=== PATIENT | female | born 2000 | race Caucasian/White ===

== ENCOUNTER → 2020-02-18 15:41 | Outpatient (BNVA) | payer OTHER, SELFPAY | PROVIDERS: Family Provider Family Medicine; PCP Family Medicine; Visit Provider Nurse Practitioner Family | DX: J06.9 Acute upper respiratory infection, unspecified (principal); Z20.828 Contact with and (suspected) exposure to other viral communicable diseases | CPT/HCPCS: 87635 ==

== ENCOUNTER 2020-02-27 17:26 | Emergency (ER) | payer OTHER, SELFPAY ==
--- NOTE | 2020-02-27 17:29 | XR_ITS ---
WS: [id number] Portable AP upright chest, 02/27/2020 Clinical Data: cp Comparison: None. Findings: No nodules, masses or effusions are seen. The heart is normal. The pulmonary vascularity is not increased. No pneumonia or pneumothorax is seen. XR/XR chest 1V portable [id number] Impression: Negative chest.
--- NOTE | 2020-02-27 17:29 | ECG_ITS ---
[facility] Test Date: 2020-02-27 Pat Name: Damari Hargrove Department: Room: Gender: Female Satellite Manager: : 2000 Requested By: Mirtha Lynn Order Number: [id number] Mahad MD: Basilia Mcgraw M.D. Measurements Intervals [place] Rate: 99 P: 39 WA: 153 QRS: 56 QRSD: 94 T: 42 QT: 325 QTc: 418 Interpretive Statements SINUS RHYTHM Compared to ECG 08/03/2015 23:05:23 Sinus tachycardia no longer present Left-axis deviation no longer present T-wave abnormality no longer present Electronically Signed On 02-28-2020 17:12:41 CDT by Basilia Mcgraw M.D. [id number] f
[2020-02-27 17:33] VITALS: BP 125/91; PULSE 128; RESP 30; TEMP 36.5; O2SAT 100; BMI 34.3
--- NOTE | 2020-02-27 17:45 | ED_ITS ---
HPI - Chest Pain General: Chief Complaint: Chest Pain Stated Complaint: covid +-chest pain Time Seen by Provider: 02/27/20 17:35 Source: patient Mode of arrival: ambulatory Limitations: no limitations History of Present Illness: HPI narrative: 20-year-old female who states she has had a cough along with chest pain and low-grade fever over the last week. Patient did test for positive for COVID last Tuesday. She states she has been afebrile over the last 2 days denies any worsening or improving factors. Denies vomiting or diarrhea. Associated symptoms: Deny abdominal pain, fever(s), nausea or vomiting Review of Systems Const: Denies: fever(s), chills, body aches or change in appetite Eyes: Denies: blurry vision or eye discomfort ENMT: Denies: throat pain or dental pain Card: Reports: chest pain Resp: Reports: non-productive cough GI: Denies: abdominal pain, nausea, vomiting or diarrhea : Denies: dysuria Musc: Denies: neck pain or back pain Skin/Breast: Denies: rash Neuro: Denies: headache(s) Psych: Denies: depression Nate/Lymph: Denies: easy bruising All/Imm: Denies: urticaria PFSH ED PFSH: Social History Smoking and tobacco status: current every day smoker Alcohol intake: current Alcohol intake frequency: holidays/special occasions only Substance/Drug Use: current Substance/Drug use frequency: daily Substance/Drug use type: Marijuana Female Reproductive History: Date of last menstrual period: 02/27/20 Physical Exam Const: COMMON NORMALS: no acute distress, patient oriented x3 and healthy appearing HENMT: COMMON NORMALS: normocephalic and atraumatic HEAD & SCALP: normocephalic and atraumatic Eye: COMMON NORMALS: Equal, round and reactive pupils present and EOMs intact bilaterally PUPIL: Yes Equal, round and reactive pupils present Neck/C-Spine: COMMON NORMALS: full ROM and supple Chest: COMMONS NORMALS: normal inspection of the chest and normal palpation of entire chest wall Resp: COMMON NORMALS: normal respiratory effort, No retractions, No use of accessory muscles and clear to auscultation bilaterally AUSCULTATION: clear to auscultation bilaterally Cardio: COMMON NORMALS: regular rhythm and No murmurs present (Cardio) RATE: tachycardic RHYTHM: regular rhythm GI: COMMON NORMALS: Normal to inspection, nondistended, normoactive bowel sounds present, Soft to palpation, non-tender and no masses PALPATION: Yes Soft to palpation Extremity: COMMON NORMALS: normal to inspection and full ROM Neuro: COMMON NORMALS: patient oriented x3, moves all extremities and no focal motor deficits Psych: COMMON NORMALS: mental status grossly normal, Normal thought process present and cooperative THOUGHT PROCESS: Normal thought process present Skin: COMMON NORMALS: no rashes or lesions noted and no wounds GENERAL SKIN EXAM: no rashes or lesions noted Course Vital Signs: Vital signs: Vital Signs Temperature 97.7 F 02/27/20 17:33 Pulse Rate 128 H 02/27/20 17:33 Respiratory Rate 30 H 02/27/20 17:33 Blood Pressure 125/91 02/27/20 17:33 Pulse Oximetry 100 02/27/20 17:33 MDM - Chest Pain MDM Narrative: Medical decision making narrative: Patient presents with atypical chest pain likely from coughing from coronavirus. Patient CT showed no signs of pulmonary embolism. Patient's blood work here is normal. Patient is stable for discharge and is to follow-up with PCP and return if worsening. Lab Data: Labs: Lab Results 02/27/20 02/27/20 02/27/20 Range/Units 18:18 18:18 18:18 WBC 13.3 H (4.0-10.0) 10^3/ uL RBC 4.57 (4.1-5.3) 10^6/u L Hgb 13.8 (11.5-15.3) g/dL Hct 42.7 (37.0-47.0) % MCV 93.4 (81-99) fL MCH 30.2 (28.0-34.0) pg MCHC 32.3 (30.0-36.0) g/dL RDW 12.4 (12.1-15.1) % Plt Count 344 (130-400) 10^3/c mm MPV 10.5 H (7.4-10.4) fL Neut % (Auto) 54.5 % Lymph % (Auto) 40.7 % [place] % (Auto) 4.0 % Eos % (Auto) 0.3 % Baso % (Auto) 0.2 % Neut # (Auto) 7.23 (1.8-7.7) 10^3/u L Lymph # (Auto) 5.4 H (0.8-4.8) 10^3/u L [place] # (Auto) 0.5 (0.2-0.9) 10^3/u L Eos # (Auto) 0.0 (0.0-0.8) 10^3/u L Baso # (Auto) 0.0 (0.0-0.1) 10^3/u L Nucleated RBC % (a uto) 0 % Nucleated RBCs # 0.0 /100WBC D-Dimer (0-0.59) ug/mIFE U Sodium 138 (136-145) mmol/L Potassium 3.8 (3.5-5.1) mmol/L Chloride 102 (98-107) mmol/L Carbon Dioxide 25 (22-29) mmol/L Anion Gap 14.8 (5-19) BUN 9 (6-20) mg/dL Creatinine 0.7 (0.5-0.9) mg/dL GFR Calculation 104.6 (90-130) mL/min Glucose 124 H (65-115) mg/dL Calculated Osmolal ity 286 (285-295) mOsm/k g Calcium 10.4 (8.5-10.5) mg/dL Total Bilirubin 0.2 (0.15-1.2) mg/dL AST 24 (0-32) U/L ALT 24 (0-33) U/L Alkaline Phosphata se 131 H (35-105) IU/L Troponin T 120 Min [place] Troponin T Total Protein 7.7 (6.6-8.7) g/dL Albumin 4.4 (3.5-5.2) g/dL Globulin 3.3 (1.3-4.6) g/dL Lipase 25 (13-60) U/L HCG, Qual Negative (Negative) 02/27/20 02/27/20 Range/Units 18:18 18:18 WBC (4.0-10.0) 10^3/ uL RBC (4.1-5.3) 10^6/u L Hgb (11.5-15.3) g/dL Hct (37.0-47.0) % MCV (81-99) fL MCH (28.0-34.0) pg MCHC (30.0-36.0) g/dL RDW (12.1-15.1) % Plt Count (130-400) 10^3/c mm MPV (7.4-10.4) fL Neut % (Auto) % Lymph % (Auto) % [place] % (Auto) % Eos % (Auto) % Baso % (Auto) % Neut # (Auto) (1.8-7.7) 10^3/u L Lymph # (Auto) (0.8-4.8) 10^3/u L [place] # (Auto) (0.2-0.9) 10^3/u L Eos # (Auto) (0.0-0.8) 10^3/u L Baso # (Auto) (0.0-0.1) 10^3/u L Nucleated RBC % (a uto) % Nucleated RBCs # /100WBC D-Dimer 1.34 H (0-0.59) ug/mIFE U Sodium (136-145) mmol/L Potassium (3.5-5.1) mmol/L Chloride (98-107) mmol/L Carbon Dioxide (22-29) mmol/L Anion Gap (5-19) BUN (6-20) mg/dL Creatinine (0.5-0.9) mg/dL GFR Calculation (90-130) mL/min Glucose (65-115) mg/dL Calculated Osmolal ity (285-295) mOsm/k g Calcium (8.5-10.5) mg/dL Total Bilirubin (0.15-1.2) mg/dL AST (0-32) U/L ALT (0-33) U/L Alkaline Phosphata se (35-105) IU/L Troponin T 120 Min [place] Cancelled [place] Troponin T Cancelled Total Protein (6.6-8.7) g/dL Albumin (3.5-5.2) g/dL Globulin (1.3-4.6) g/dL Lipase (13-60) U/L HCG, Qual (Negative) Imaging Data^: CT Chest: Radiologist's impression: [address] [address] [address] Scan Report Signed Patient: Damari Hargrove Unit #: [id number] : 2000 Age/Sex: 20 / F ADM Date: 02/27/20 Loc: ER Room/Bed: Attending Dr: Ordering Provider/Ordering MD: Mirtha Lynn MD Date of Service: 02/27/20 Procedure(s): CT angio chest PE protcl [id number] Accession Number(s): [id number] Report Number: [id number] PROCEDURE INFORMATION: Exam: CT Angiography Chest With Contrast Exam date and time: 02/27/2020 6:48 PM Age: 20 years old Clinical indication: Cough and shortness of breath; Patient HX: Covid +; Additional info: Cp TECHNIQUE: Imaging protocol: Computed tomographic angiography of the chest with intravenous contrast. 3D rendering (Not supervised by radiologist): MIP and/or 3D reconstructed images were created by the technologist. Radiation optimization: All CT scans at this facility use at least one of these dose optimization techniques: automated exposure control; mA and/or kV adjustment per patient size (includes targeted exams where dose is matched to clinical indication); or iterative reconstruction. Contrast material: OMNI 350; Contrast volume: 62 ml; Contrast route: INTRAVENOUS (IV); COMPARISON: CR XR chest 1V portable [id number] 02/27/2020 5:52 PM RADIATION DOSE METRICS: Total DLP (mGy-cm): 565.81 FINDINGS: Pulmonary arteries: Suboptimal contrast opacification of the pulmonary arteries due to bolus timing. No filling defects identified in the central or lobar pulmonary artery branches. The segmental and smaller branches are suboptimally opacified to rule out embolus. Aorta: Unremarkable. No aortic aneurysm. No aortic dissection. Lungs: Calcified granulomas in the right lung. The lungs are otherwise clear. No ground-glass opacities identified. Pleural space: Unremarkable. No pneumothorax. No pleural effusion. Heart: Unremarkable. No cardiomegaly. No pericardial effusion. Lymph nodes: Calcified mediastinal and right hilar lymph nodes. Bones/joints: Unremarkable. No acute fracture. Soft tissues: Unremarkable. CT/CT angio chest PE protcl [id number] IMPRESSION: 1. Suboptimal pulmonary artery bolus timing. No filling defects identified within the central or lobar branches. The more distal branches are suboptimally visualized. 2. No evidence for pneumonia. EKG Data^: EKG 1: Attestation: I personally reviewed and interpreted this EKG as follows: EKG interpretation date: 02/27/20 EKG interpretation time: 17:47 Interpretation: nsr hr [address] or t wave abnormalities qrs 94 qtc 381 Discharge Plan Discharge Patient Disposition: Home Clinical Impression: Atypical chest pain, COVID-19 Condition: Stable Prescriptions: New Naprosyn 500 mg tablet 500 mg PO BID PRN (Reason: pain) Qty: 20 RF: 0 No Action acetaminophen 500 mg Tablet 1,000 mg PO PRN RF: 0 Discharge Orders: Discharge Order (Routine); Ordered 02/27/20 Ordered By: Mirtha Lynn Referrals: Brayden Lemos, DO [Primary Care Provider] - 1-3 days Discharge Diet: Advance as tolerated Discharge Activity: Resume usual activity Patient Instructions: Chest Pain (ED) Stand Alone Forms: Work/School Release Coding Level of Care Code ED Equipment Maintenance Superintendent for Chg Fwd Exam Comprehensive
[2020-02-27 18:25] LABS: Basophils % 0.2 %; Eosinophils % 0.3 %; Hematocrit 42.7 % (37.0-47.0); Hemoglobin 13.8 g/dL (11.5-15.3); Lymphocytes # 5.4 10^3/uL (0.8-4.8); Lymphocytes % 40.7 %; Mean Corpuscular HGB Conc 32.3 g/dL (30.0-36.0); Mean Corpuscular Hemoglobin 30.2 pg (28.0-34.0); Mean Corpuscular Volume 93.4 fL (81-99); Mean Platelet Volume 10.5 fL (7.4-10.4); Monocytes # 0.5 10^3/uL (0.2-0.9); Neutrophils # 7.23 10^3/uL (1.8-7.7); Neutrophils % 54.5 %; Nucleated Red Blood Cells % 0 %; Platelet Count 344 10^3/cmm (130-400); Red Blood Count 4.57 10^6/uL (4.1-5.3); Red Cell Distribution Width 12.4 % (12.1-15.1); White Blood Count 13.3 10^3/uL (4.0-10.0)
[2020-02-27] MEDS: dexamethasone 10 mg/mL INJ IVP (18:28)
[2020-02-27] MEDS: ketorolac 30 mg/mL INJ IVP (18:28)
[2020-02-27 18:39] LABS: HCG Qualitative Urine. Negative (Negative)
[2020-02-27 18:40] LABS: D Dimer 1.34 ug/mIFEU (0-0.59)
--- NOTE | 2020-02-27 18:43 | CTR_ITS ---
PROCEDURE INFORMATION: Exam: CT Angiography Chest With Contrast Exam date and time: 02/27/2020 6:48 PM Age: 20 years old Clinical indication: Cough and shortness of breath; Patient HX: Covid +; Additional info: Cp TECHNIQUE: Imaging protocol: Computed tomographic angiography of the chest with intravenous contrast. 3D rendering (Not supervised by radiologist): MIP and/or 3D reconstructed images were created by the technologist. Radiation optimization: All CT scans at this facility use at least one of these dose optimization techniques: automated exposure control; mA and/or kV adjustment per patient size (includes targeted exams where dose is matched to clinical indication); or iterative reconstruction. Contrast material: OMNI 350; Contrast volume: 62 ml; Contrast route: INTRAVENOUS (IV); COMPARISON: CR XR chest 1V portable [id number] 02/27/2020 5:52 PM RADIATION DOSE METRICS: Total DLP (mGy-cm): 565.81 FINDINGS: Pulmonary arteries: Suboptimal contrast opacification of the pulmonary arteries due to bolus timing. No filling defects identified in the central or lobar pulmonary artery branches. The segmental and smaller branches are suboptimally opacified to rule out embolus. Aorta: Unremarkable. No aortic aneurysm. No aortic dissection. Lungs: Calcified granulomas in the right lung. The lungs are otherwise clear. No ground-glass opacities identified. Pleural space: Unremarkable. No pneumothorax. No pleural effusion. Heart: Unremarkable. No cardiomegaly. No pericardial effusion. Lymph nodes: Calcified mediastinal and right hilar lymph nodes. Bones/joints: Unremarkable. No acute fracture. Soft tissues: Unremarkable. CT/CT angio chest [place] prot [id number] IMPRESSION: 1. Suboptimal pulmonary artery bolus timing. No filling defects identified within the central or lobar branches. The more distal branches are suboptimally visualized. 2. No evidence for pneumonia. Radiation Dose CTDIVOL = (mGy): DLP = 565.81 (mGy-cm)
[2020-02-27 18:49] LABS: Slide Review Slide Review Perform
[2020-02-27 18:56] LABS: Alanine Aminotransferase 24 U/L (0-33); Albumin Level 4.4 g/dL (3.5-5.2); Alkaline Phosphatase 131 IU/L (35-105); Anion Gap 14.8 (5-19); Aspartate Amino Transferase 24 U/L (0-32); Blood Urea Nitrogen 9 mg/dL (6-20); Calcium 10.4 mg/dL (8.5-10.5); Carbon Dioxide 25 mmol/L (22-29); Chloride 102 mmol/L (98-107); Globulin 3.3 g/dL (1.3-4.6); Glomerular Filtration Rate 104.6 mL/min (90-130); Glucose 124 mg/dL (65-115); Lipase 25 U/L (13-60); Osmolality Calculated 286 mOsm/kg (285-295); Potassium 3.8 mmol/L (3.5-5.1); Sodium 138 mmol/L (136-145); Total Bilirubin 0.2 mg/dL (0.15-1.2); Total Protein 7.7 g/dL (6.6-8.7)
[2020-02-27] MEDS: iohexol 350 mg/mL 100 mL Btl IV (19:14)
[2020-02-27 20:07] VITALS: BP 136/74; PULSE 105; RESP 17; O2SAT 94
== END 2020-02-27 20:14 | disposition home or self-care (01) ==
PROVIDERS: Emergency Provider Emergency Medicine; Family Provider Family Medicine; PCP Family Medicine
DX: U07.1 COVID-19 (principal); R07.89 Other chest pain; F17.210 Nicotine dependence, cigarettes, uncomplicated
CPT/HCPCS: 12345; 71045; 71275; 80053; 81025; 83690; 85025; 85378; 93005; 96374; 96375; 99282; 99284; J1100; J1885; Q9967

== ENCOUNTER 2021-09-10 20:49 | Emergency (ER) | payer OTHER, BC, MEDICAID, SELFPAY ==
--- NOTE | 2021-09-10 20:54 | ED_ITS ---
HPI - GI Bleed General: Chief complaint: Nausea/Vomiting/Diarrhea Stated complaint: Throwing Up Blood Time Seen by Provider: 09/10/21 20:53 History of Present Illness: Ms. Hargrove is a 21-year-old female currently approximately 9 weeks who presents to the emergency department due to hematemesis. She reports being at her baseline health earlier today and subsequently has had 4 episodes of bloody vomit. She has had associated nausea. She endorses the first episode having some bright red blood however this was not preceded by blood loss vomiting. Earlier in she did have significant nausea vomiting however has not had any for the past few days. She does endorse some chest discomfort however no shortness of breath. No significant abdominal discomfort. Intensity symptoms is moderate. Course has persisted. Denies similar histories in the past. No vaginal bleeding or discharge. No other specific changes in health, exacerbating, or alleviating factors identified. Patient later endorsed history of ulcer. Onset (ago): hour(s) Severity: moderate Review of Systems General: Reports: 10 or more systems reviewed and unremarkable except in HPI and below ENMT: Denies: uvular edema PFSH ED PFSH: Medical History (Updated 09/10/21 @ 22:46 by Arnaldo Harris MD) No significant past medical history Surgical History (Updated 09/10/21 @ 21:28 by Arnaldo Harris MD) History of ear, nose, and throat (ENT) surgery Family History Denies family history of Clotting disorder Bleeding disorder Social History Smoking and tobacco status: current every day smoker Alcohol intake: current Alcohol intake frequency: holidays/special occasions only Female Reproductive History: Date of last menstrual period: 02/27/20 Physical Exam Const: COMMON NORMALS: alert GENERAL APPEARANCE: cooperative and well d eveloped HENMT: COMMON NORMALS: normocephalic and atraumatic HEAD & SCALP: normocephalic and atraumatic THROAT: tonsils normal, uvula midline and posterior oropharynx abnormal (Mild erythema) no edema; no uvular edema Eye: COMMON NORMALS: conjunctivae normal CONJUNCTIVA: Yes conjunctivae normal SCLERA: sclerae normal Neck/C-Spine: COMMON NORMALS: supple GENERAL: Yes trachea midline Resp: COMMON NORMALS: normal respiratory effort EFFORT & INSPECTION: Yes able to speak in complete sentences Cardio: COMMON NORMALS: regular rate and regular rhythm RATE: regular rate RHYTHM: regular rhythm GI: COMMON NORMALS: Soft to palpation PALPATION: Yes Soft to palpation and No Tenderness to palpation present (GI) PERCUSSION: normal to percussion Extremity: GENERAL: Yes normal exam except as noted and No edema Neuro: COMMON NORMALS: moves all extremities SENSORIUM/ORIENTATION: Yes alert and No Orientation impaired Psych: COMMON NORMALS: mental status grossly normal and Normal thought process present THOUGHT PROCESS: Normal thought process present Course ED course: - Patient was seen and evaluated by me at bedside - Patient placed on cardiac monitors, IV access obtained - Initial evaluation notable for exam as above. Nontoxic. No evidence of oropharyngeal pathology. No abdominal tenderness to palpation - Labs and xrays personally interpreted by me - Fluids and antiemetic given. - Labs notable for mild leukocytosis, hemoglobin 10.9 though may be secondary to dilution. Metabolic panel with evidence of dehydration. - Imaging notable for no pneumothorax or lobar consolidation. No free air or other findings consistent with esophageal perforation - Upon serial reexamination after treatment the patient was improved. She did not have recurrence of hematemesis. - Based on patient history, evaluation, and testing as interpreted the most likely cause of the patient's condition is upper GI bleed possibly secondary to ulcer - The results of ED evaluation were discussed with the patient including prescriptions and/or symptomatic cares (if applicable) including appropriate and responsible use, followup plan, and return precautions. The patient verbalized understanding and felt safe for discharge. - Patient discharged in satisfactory condition. Note: Click bubbles or prepopulated oh in note writing are used for assistance with data collection and billing and are inherently more limited than narrative and other text portions of this note. Please use narrative for additional clinical history and defer to narrative/free test for any case of contradictory information. If information appears in only free text or click bubble it should be considered present or absent as reported. Please contact note typewriter tester for clarifications of clinical information or contradictory information. MDM is a brief summary, contradictory or erroneous seeming information should be clarified and full note should be reviewed. Vital Signs: Vital signs: Vital Signs Temperature 98.4 F 09/10/21 21:28 Pulse Rate 78 04/07/22 22:58 Respiratory Rate 14 09/10/21 21:28 Blood Pressure 115/64 09/10/21 22:58 Pulse Oximetry 98 09/10/21 22:58 MDM - GI Bleed Medical Decision Making 21-year-old currently 9 weeks presenting with concern over hematemesis. Nontoxic on exam and did not have recurrence in the emergency department. Does have history of ulcer. Satisfactory for outpatient management with improvement in symptoms in ED with symptom treatment. Medical Records I reviewed the patient's medical records. Lab Data I reviewed the patient's lab results. : 09/10/21 21:55 09/10/21 21:20 Radiology Impressions Chest X-Ray 09/10/21 21:06 IMPRESSION: No acute findings. Laboratory Results WBC 13.1 10^3/uL (4.0-10.0) H 09/10/21 21:55 Corrected WBC Cancelled 09/10/21 21:20 RBC 3.48 10^6/uL (4.1-5.3) L 09/10/21 21:55 Hgb 10.9 g/dL (11.5-15.3) L 09/10/21 21:55 Hct 32.8 % (37.0-47.0) L 09/10/21 21:55 MCV 94.3 fl (81-99) 09/10/21 21:55 MCH 31.3 pg (28.0-34.0) 09/10/21 21:55 MCHC 33.2 g/dL (30.0-36.0) 09/10/21 21:55 RDW 12.0 % (12.1-15.1) L 09/10/21 21:55 Plt Count 214 10^3/cmm (130-400) 09/10/21 21:55 MPV 11.0 fL (7.4-10.4) H 09/10/21 21:55 Gran % Cancelled 09/10/21 21:20 Neut % (Auto) 73.3 % 09/10/21 21:55 Lymph % (Auto) 20.3 % 09/10/21 21:55 [place] % (Auto) 5.5 % 09/10/21 21:55 Eos % (Auto) 0.4 % 09/10/21 21:55 Baso % (Auto) 0.3 % 09/10/21 21:55 Neut # (Auto) 9.62 10^3/uL (1.8-7.7) H 09/10/21 21:55 Lymph # (Auto) 2.7 10^3/uL (0.8-4.8) 09/10/21 21:55 [place] # (Auto) 0.7 10^3/uL (0.2-0.9) 09/10/21 21:55 Eos # (Auto) 0.1 10^3/uL (0.0-0.8) 09/10/21 21:55 Baso # (Auto) 0.0 10^3/uL (0.0-0.1) 09/10/21 21:55 Absolute Gran (auto) Cancelled 09/10/21 21:20 Nucleated RBC % (auto) 0 % 09/10/21 21:55 Nucleated RBCs # 0.0 /100WBC 09/10/21 21:55 PT 13.20 SECONDS (12.1-14.9) 09/10/21 21:55 INR 0.97 (0.8-1.2) 09/10/21 21:55 Sodium 133 mmol/L (136-145) L 09/10/21 21:20 Potassium 3.8 mmol/L (3.5-5.1) 09/10/21 21:20 Chloride 103 mmol/L (98-107) 09/10/21 21:20 Carbon Dioxide 18 mmol/L (22-29) L 09/10/21 21:20 Anion Gap 15.8 (5-19) 09/10/21 21:20 BUN 7 mg/dL (6-20) 09/10/21 21:20 Creatinine 0.4 mg/dL (0.5-0.9) L 09/10/21 21:20 GFR Calculation 197.8 mL/min (90-130) H 09/10/21 21:20 Glucose 88 mg/dL (65-115) 09/10/21 21:20 Calculated Osmolality 273 mOsm/kg (285-295) L 09/10/21 21:20 Calcium 9.1 mg/dL (8.5-10.5) 09/10/21 21:20 Total Bilirubin 0.2 mg/dL (0.15-1.2) 04/07/22 21:20 AST 17 U/L (0-32) 09/10/21 21:20 ALT 17 U/L (0-33) 09/10/21 21:20 Alkaline Phosphatase 93 IU/L (35-105) 09/10/21 21:20 Total Protein 6.4 g/dL (6.6-8.7) L 09/10/21 21:20 Albumin 4.0 g/dL (3.5-5.2) 09/10/21 21:20 Globulin 2.4 g/dL (1.3-4.6) 09/10/21 21:20 Group A Strep Rapid Negative (Negative) 09/10/21 21:20 Discharge Plan Discharge Patient Disposition: Home Clinical Impression: Vomiting, Hematemesis, Dehydration, Anemia, Leukocytosis Condition: Stable Prescriptions: New Protonix 40 mg tablet,delayed release (DR/EC) 40 mg PO BID 14 Days Qty: 28 0RF pyridoxine (vitamin B6) 25 mg tablet 25 mg PO TID PRN (Reason: Nausea And Vomiting) Qty: 21 0RF Unisom (doxylamine) 25 mg tablet 12.5 mg PO Q8H PRN (Reason: nausea and vomiting) Qty: 21 0RF Discontinued naproxen [Naprosyn] 500 mg tablet 500 mg PO BID PRN (Reason: pain) Qty: 20 0RF No Action acetaminophen 500 mg Tablet 1,000 mg PO DAILY PRN (Reason: Pain) 0RF Discharge Orders: Discharge ED (Routine); Ordered 09/14/21 Ordered By: Arnaldo Harris Referrals: Brayden Lemos, DO [Primary Care Provider] - Discharge Diet: Advance as tolerated and Clear Liquid Discharge Activity: Increase activity as tolerated Patient Instructions: Nausea and Vomiting in (ED), Hematemesis (ED), Opioid Safety Activity Restrictions/Additional Instructions: Thank you for visiting the emergency department. You were seen and evaluated for vomiting blood. The exact cause of your symptoms is unclear though most commonly secondary to ulcers or mild esophageal irritation. You will be placed on a proton pump inhibitor. Please follow-up with your primary care provider and manager relationship. Your hemoglobin today was 10.9, I recommend repeat blood work in 1 week for trending purposes. Please return to the emergency department for worsening symptoms including associated lightheadedness, racing heart, shortness of breath, or anything else that you are concerned about and feel needs emergency department evaluation. Coding Level of Care Code ED Finishing Operator for Chg Fwd Exam Comprehensive
[2021-09-10 20:55] VITALS: BP 145/82; PULSE 99; RESP 16; TEMP 36.8; O2SAT 99; BMI 29.2
--- NOTE | 2021-09-10 21:06 | XRR_ITS ---
PROCEDURE INFORMATION: Exam: XR Chest Exam date and time: 09/10/2021 9:44 PM Age: 21 years old Clinical indication: Chest wall pain; Additional info: Hematemesis, chest discomfort TECHNIQUE: Imaging protocol: XR of the chest. Views: 1 view. COMPARISON: CR XR chest 1V portable [id number] 02/27/2020 5:52 PM FINDINGS: Lungs: No consolidation. Pleural spaces: Unremarkable. No pleural effusion. No pneumothorax. Heart/Mediastinum: No cardiomegaly. Bones/joints: No acute findings. XR/XR chest 1V portable [id number] IMPRESSION: No acute findings.
[2021-09-10 21:28] VITALS: BP 139/80; PULSE 87; RESP 14; TEMP 36.9; O2SAT 97
[2021-09-10] MEDS: lidocaine 2% viscous 15 ML, aluminum-mag hydrox-simethicon 30 ML, sucralfate oral liq 1 GM PO (21:29)
[2021-09-10] MEDS: lactated ringers 1,000 ML 999 ML IV (21:29)
[2021-09-10 21:44] LABS: Rapid Strep A Test Negative (Negative)
[2021-09-10 21:53] LABS: Alanine Aminotransferase 17 U/L (0-33); Alkaline Phosphatase 93 IU/L (35-105); Blood Urea Nitrogen 7 mg/dL (6-20); Calcium 9.1 mg/dL (8.5-10.5); Carbon Dioxide 18 mmol/L (22-29); Chloride 103 mmol/L (98-107); Globulin 2.4 g/dL (1.3-4.6); Glomerular Filtration Rate 197.8 mL/min (90-130); Glucose 88 mg/dL (65-115); Osmolality Calculated 273 mOsm/kg (285-295); Sodium 133 mmol/L (136-145); Total Bilirubin 0.2 mg/dL (0.15-1.2); Total Protein 6.4 g/dL (6.6-8.7)
[2021-09-10 21:55] LABS: Anion Gap 15.8 (5-19); Aspartate Amino Transferase 17 U/L (0-32); Potassium 3.8 mmol/L (3.5-5.1)
[2021-09-10 22:15] LABS: Basophils % 0.3 %; Eosinophils # 0.1 10^3/uL (0.0-0.8); Eosinophils % 0.4 %; Hematocrit 32.8 % (37.0-47.0); Hemoglobin 10.9 g/dL (11.5-15.3); Lymphocytes # 2.7 10^3/uL (0.8-4.8); Lymphocytes % 20.3 %; Mean Corpuscular HGB Conc 33.2 g/dL (30.0-36.0); Mean Corpuscular Hemoglobin 31.3 pg (28.0-34.0); Mean Corpuscular Volume 94.3 fl (81-99); Monocytes # 0.7 10^3/uL (0.2-0.9); Monocytes % 5.5 %; Neutrophils # 9.62 10^3/uL (1.8-7.7); Neutrophils % 73.3 %; Nucleated Red Blood Cells % 0 %; Platelet Count 214 10^3/cmm (130-400); Red Blood Count 3.48 10^6/uL (4.1-5.3); White Blood Count 13.1 10^3/uL (4.0-10.0)
[2021-09-10 22:26] LABS: INR 0.97 (0.8-1.2)
[2021-09-10 22:58] VITALS: BP 115/64; PULSE 78; O2SAT 98
== END 2021-09-10 23:01 | disposition home or self-care (01) ==
PROVIDERS: Emergency Provider Emergency Medicine; PCP Family Medicine
DX: O21.0 Mild hyperemesis gravidarum (principal); Z3A.09 9 weeks gestation of pregnancy; O99.331 Smoking (tobacco) complicating pregnancy, first trimester; F17.210 Nicotine dependence, cigarettes, uncomplicated
CPT/HCPCS: 71045; 80053; 85025; 85610; 87081; 87880; 96360; 99283

== ENCOUNTER → 2021-12-29 12:59 | Outpatient (BNVA) | payer OTHER, BC, MEDICAID, SELFPAY | PROVIDERS: PCP Family Medicine; Visit Provider Family Medicine | DX: Z34.00 Encounter for supervision of normal first pregnancy, unspecified trimester (principal) | CPT/HCPCS: 82950 ==

== ENCOUNTER 2022-01-07 08:29 | Outpatient (CLI) | payer OTHER, BC, MEDICAID, SELFPAY ==
[2022-01-07] VITALS (12 sets, daily range): BP systolic 97–112; BP diastolic 52–61; PULSE 66–77; RESP 18; BMI 28.3
== END 2022-01-07 12:12 | disposition home or self-care (01) ==
LOC: OPOB 08:30 → OBGYN 08:31 → OPOB 08:43 → OBGYN 08:45
PROVIDERS: Absent Provider Family Medicine; PCP Family Medicine; Visit Provider Family Medicine
DX: O26.899 Other specified pregnancy related conditions, unspecified trimester (principal); Z3A.00 Weeks of gestation of pregnancy not specified; R10.9 Unspecified abdominal pain
CPT/HCPCS: 99211

== ENCOUNTER → 2022-02-16 11:41 | Outpatient (BNVA) | payer OTHER, BC, MEDICAID, SELFPAY | PROVIDERS: PCP Family Medicine; Visit Provider Family Medicine | DX: Z34.00 Encounter for supervision of normal first pregnancy, unspecified trimester (principal); Z51.81 Encounter for therapeutic drug level monitoring; R25.2 Cramp and spasm | CPT/HCPCS: 80053; 83735; 85025 ==

== ENCOUNTER 2022-02-25 22:12 | Outpatient (CLI) | payer OTHER, BC, MEDICAID, SELFPAY ==
[2022-02-25 22:27] VITALS: BMI 30.7
[2022-02-25 22:34] VITALS: BP 121/69; PULSE 80
[2022-02-25 22:39] VITALS: PULSE 79; O2SAT 99
[2022-02-25 22:44] VITALS: PULSE 78; O2SAT 98
[2022-02-25 23:11] VITALS: BP 114/68; PULSE 70
[2022-02-25 23:40] VITALS: BP 116/69; PULSE 72; RESP 17
[2022-02-26 00:10] VITALS: BP 133/84; PULSE 75
[2022-02-26 00:19] LABS: Bilirubin Urine Neg (Negative); Blood Urine Neg (Negative); Glucose Urine UA Norm (Normal); Ketones Urine Negative (Negative); Leukocyte Esterase Urine Negative (Negative); Nitrate Urine Negative (Negative); Protein Urine Neg (Negative); Urine Appearance Clear (CLEAR); Urine Color Colorless (Yellow); Urobilinogen Urine Norm (Negative); pH Urine 6.5 (5-7)
[2022-02-26 00:20] LABS: Add Urine Culture? No; Squamous Epithelial Cell Urine 0-4 /hpf (0-5)
[2022-02-26 01:28] VITALS: BP 133/84; PULSE 75
== END 2022-02-26 01:28 | disposition home or self-care (01) ==
LOC: OPOB 22:12 → OBGYN 22:14
PROVIDERS: PCP Family Medicine; Visit Provider Family Medicine
DX: O26.853 Spotting complicating pregnancy, third trimester (principal); Z3A.33 33 weeks gestation of pregnancy
CPT/HCPCS: 59025; 81000; 81001; 82570; 84156; 99211

== ENCOUNTER → 2022-03-16 15:59 | Outpatient (BNVA) | payer OTHER, BC, MEDICAID, SELFPAY | PROVIDERS: PCP Family Medicine; Visit Provider Family Medicine | DX: Z34.90 Encounter for supervision of normal pregnancy, unspecified, unspecified trimester (principal) | CPT/HCPCS: 87081 ==

== ENCOUNTER → 2022-03-18 09:13 | Outpatient (BNVA) | payer OTHER, BC, MEDICAID, SELFPAY | PROVIDERS: PCP Family Medicine; Visit Provider Family Medicine | DX: Z34.03 Encounter for supervision of normal first pregnancy, third trimester (principal); Z3A.33 33 weeks gestation of pregnancy | CPT/HCPCS: 76816; 76820 ==

== ENCOUNTER 2022-03-18 17:26 | Inpatient (IN) | payer OTHER, BC, MEDICAID, SELFPAY ==
[2022-03-18] VITALS (23 sets, daily range): BP systolic 91–157; BP diastolic 39–92; PULSE 61–86; RESP 15–18; TEMP 35.7–36.8; O2SAT 99–100; BMI 30.5
[2022-03-18 17:17] LABS: Actim Prom Positive
[2022-03-18] MEDS: famotidine 20 mg/2 mL INJ IVP ×2 (17:50→23:25)
[2022-03-18] MEDS: lactated ringers 1,000 ML 999 ML IV (17:50)
[2022-03-18] MEDS: citric acid-sodium citrate 30 mL UDC PO (17:50)
[2022-03-18] MEDS: metoclopramide 5 mg/mL SDV 2 mL 10 MG IVP (17:50)
[2022-03-18 17:55] LABS: Basophils % 0.3 %; Eosinophils # 0.1 10^3/uL (0.0-0.8); Eosinophils % 0.6 %; Hematocrit 32.4 % (37.0-47.0); Hemoglobin 11.3 g/dL (11.5-15.3); Lymphocytes # 3.7 10^3/uL (0.8-4.8); Lymphocytes % 26.1 %; Mean Corpuscular HGB Conc 34.9 g/dL (30.0-36.0); Mean Corpuscular Hemoglobin 33.2 pg (28.0-34.0); Mean Corpuscular Volume 95.3 fl (81-99); Mean Platelet Volume 10.5 fL (7.4-10.4); Monocytes # 0.9 10^3/uL (0.2-0.9); Monocytes % 6.1 %; Neutrophils # 9.41 10^3/uL (1.8-7.7); Neutrophils % 66.3 %; Nucleated Red Blood Cells % 0 %; Platelet Count 295 10^3/cmm (130-400); White Blood Count 14.2 10^3/uL (4.0-10.0)
--- NOTE | 2022-03-18 17:56 | P.HP_ITS ---
Providers/Chief Complaint Admitting Physician: Immanuel Stoddard MD Primary Care Provider: Brayden Lemos DO Chief Complaint: loss of fluid History of Present Illness Damari Hargrove is a 22 year old @ 36.3 weeks by LMP c/w 10 wk US. Preg c/b smoker, THC use, anemia, new findings of SGA and polyhydramnios, breech presentation, presenting with SROM. The patient noted that at approximately 1 AM on 03/18/2022 she began to have leakage of fluid that was clear and watery mixed with mucus. It was small amounts, however persisted. She had an ultrasound done earlier today and the f luid persisted, so she presented to labor and delivery triage for evaluation. In L&D, she was noted to have a positive actim prom test and was noted to be breech presentation. The patient's GBS was collected on 03/16/2022 and is currently pending. heart tones are currently in the mid 140s with moderate variability good accelerations. The patient is sanjiv every 2 to 4 minutes but she is not feeling most of them. The patient is very anxious about having a spinal done. Review of Systems Narrative: The patient denies fever, chest pain, shortness of breath, nausea, vomiting, dysuria The patient admits to minimal spotting, leaked fluid. Medications/Allergies Home Medications Medication Instructions Recorded Confirmed Last Taken Type vits no.130-ferrous fum 1 tab PO DAILY 01/11/22 03/17/22 02/24/22 07:00 History 27 mg iron-folic acid 800 mcg tablet ( Vitamin) magnesium oxide 400 mg PO DAILY #30 tabs 02/17/22 03/17/22 02/24/22 07:00 Rx potassium chloride 10 mEq 10 meq PO DAILY #30 tabs 02/17/22 03/17/22 02/24/22 07:00 Rx tablet,extended release (Klor-Con) polysaccharide iron complex 150 mg 150 mg PO BID #60 caps 03/02/22 03/17/22 Unknown Rx iron capsule (Ferrex) Allergies Allergy/AdvReac Type Severity Reaction Status Date / Time Opioids - Morphine Analogues Allergy ALGY-Anaphy Verified 02/27/20 18:17 laxis PFSH Acute PFSH: Medical History No significant past medical history Surgical History History of ear, nose, and throat (ENT) surgery Family History Denies family history of Clotting disorder Bleeding disorder Social History Smoking and tobacco status: current every day smoker Alcohol intake: current Alcohol intake frequency: holidays/special occasions only Female Reproductive History: Date of last menstrual period: 02/27/20 : 1 Vitals/I&O/Wt Last Vital Signs Pulse 75 03/18/22 17:30 BP 122/62 03/18/22 17:30 Weight last 48 hrs Weight 178 lb Physical Exam Narrative: General: Alert and oriented x3, anxious Eyes: Pupils equal round and reactive to light and accommodation Mouth: Mucous membranes moist, pharynx non-erythematous Cardiac: Regular rate and rhythm without murmurs Lungs: Clear to auscultation bilaterally without wheezes, crackles or rhonchi Abdomen: Soft, non-tender, fundus consistent with gestational age Extremities: Trace edema in the bilateral lower extremities Data : 03/18/22 17:40 A&P Assessment and plan (1) Small for gestational age fetus: (2) Polyhydramnios: (3) Breech presentation: (4) Anemia: (5) Smoker: (6) Supervision of high risk , unspecified, third trimester: The patient has confirmed spontaneous rupture of membranes that has been approximately 17 hours ago. The infant is in the breech position. Because of this, we will need to proceed with a primary low-transverse section. There is concern that the infant may be small for gestational age as it was measuring 2168 g (3rd %ile) on ultrasound earlier today. Multiple risk factors including smoking, THC use, anemia would be playing a part in this. We will have peds be available for delivery. The patient is anxious about the surgery. I encouraged her that a spinal would be a safer option for the if she can tolerate it. We will proceed with this route if possible. The patient is anxious about a section but gives consent to proceed after knowing the possible risks of a breech vaginal delivery. All questions were answered. Proceed with care as above. Attestations Medical Necessity Statement*: The patient will be here for greater than 2 midn ights due to routine intrapartum and management of labor and delivery and post care with the above listed complications. 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
[2022-03-18 18:01] LABS: Amphetamines Screen Urine Negative (Negative); Barbiturates Screen Urine Negative (Negative); Benzodiazepines Screen Urine Negative (Negative); Cocaine Screen Urine Negative (Negative); Opiate Screen Urine Negative (Negative); PCP Screen Urine Negative (Negative); THC Screen Urine Positive (Negative)
--- NOTE | 2022-03-18 18:32 | ANES.PREANE2 ---
Pre-Anesthetic Assessment Height/Weight: Height 1.63 m Weight 80.739 kg Pulse Resp BP O2 Del Method 81 15 145/85 03/18/22 18:29 03/18/22 16:50 03/18/22 18:29 03/18/22 17:30 Preop Diagnosis: SROM, breech presentation C/S Familial anesthetic complications: None Was Beta Kamran taken within 24 hours: N/A Was Clonidine taken within 24 hours: N/A Last intake: 1300 solid food 1530 liquid Social Tobacco and No alcohol 0.5 pack(s) per day Exam alert, oriented x 3, clear to auscultation bilaterally and regular rate & rhythm Airway Submandibular: within normal limits Cervical ROM: within normal limits Mallampati: Class II Dentition: full History/ROS No significant history except as noted Pulmonary None reported CV/HEM Anemia None reported Hepatic None reported GI None reported Metabolic None reported Musc/skel None reported Neuropsych None reported Anesthetic Plan ASA status: 2 Anesthesia: Anesthesia Evaluation, Eval. for regional block and Regional (specify below) (spinal ) Risk of > 500 ml blood loss (7ml/kg in children): Yes, adequate IV access and fluids planned Medications/Allergies Home Medications Medication Instructions Recorded Confirmed Last Taken Type vits no.130-ferrous fum 1 tab PO DAILY 01/11/22 03/17/22 02/24/22 07:00 History 27 mg iron-folic acid 800 mcg tablet ( Vitamin) magnesium oxide 400 mg PO DAILY #30 tabs 02/17/22 03/17/22 02/24/22 07:00 Rx potassium chloride 10 mEq 10 meq PO DAILY #30 tabs 02/17/22 03/17/22 02/24/22 07:00 Rx tablet,extended release (Klor-Con) polysaccharide iron complex 150 mg 150 mg PO BID #60 caps 03/02/22 03/17/22 Unknown Rx iron capsule (Ferrex) Allergies Allergy/AdvReac Type Severity Reaction Status Date / Time Opioids - Morphine Analogues Allergy ALGY-Anaphy Verified 02/27/20 18:17 laxis [facility] Anesthesia Medical History No significant past medical history Surgical History History of ear, nose, and throat (ENT) surgery Family History Denies family history of Clotting disorder Bleeding disorder Social History Smoking and tobacco status: current every day smoker Alcohol intake: current Alcohol intake frequency: holidays/special occasions only Female Reproductive History Date of last menstrual period: 02/27/20 : 1 Data Anesthesia : 03/18/22 17:40 Short CBC 03/18/22 Range/Units 17:40 WBC 14.2 H (4.0-10.0) 10^3/uL Hgb 11.3 L (11.5-15.3) g/dL Hct 32.4 L (37.0-47.0) % MCV 95.3 (81-99) fl Plt Count 295 (130-400) 10^3/cmm Neut % (Auto) 66.3 % Neut # (Auto) 9.41 H (1.8-7.7) 10^3/uL Cardiac Studies: No Data to Display
[2022-03-18] MEDS: ceFAZolin 2,000 MG in sodium chloride 0.9% (plus) 50 ML 100 MG IV (19:15)
--- NOTE | 2022-03-18 21:27 | P.OP_ITS ---
Operative Report Date of procedure: March 18, 2022 Pre-op diagnosis: 1. Intrauterine at 36.3 weeks gestation 2. Spontaneous rupture of membranes at 1 AM on 03/18/2022 3. Breech presentation 4. Polyhydramnios 5. IUGR 6. Smoker 7. Marijuana use 8. Anemia Post-op diagnosis: 1. Intrauterine status post primary low transverse section at 36.3 weeks gestation 2. Spontaneous rupture of membranes at 1 AM on 03/18/2022 3. Breech presentation 4. Polyhydramnios 5. IUGR 6. Smoker 7. Marijuana use 8. Anemia Post-op findings: 1. Saray breech presentation 2. Delivery of female weighing 4 pounds 6 ounces with APGARS of 1, 6 and 7. 3. Polyhydramnios clinically 4. Intact placenta with central umbilical cord insertion site Procedure done: Primary low transverse section Specimens removed/disposition: Placenta sent to pathology Pathology: Placenta Surgeon: Immanuel Stoddard MD Estimated blood loss (mL): 500 IV fluids (mL): 1,800 Urine output (mL): 700 Complications: None Brief History: Damari Hargrove is a 22 year old G1 NOW P1 status post primary low-transverse section @ 36.3 weeks by LMP c/w 10 wk US. Preg c/b smoker, THC use, anemia, new findings of SGA and polyhydramnios, breech presentation, presenting with SROM. The patient noted that at approximately 1 AM on 03/18/2022 she began to have leakage of fluid that was clear and watery mixed with mucus.? It was small amounts, however persisted.? She had an ultrasound done earlier today and the fluid leaking persisted, so she presented to labor and delivery triage for evaluation.? In L&D, she was noted to have a positive actim prom test and was noted to be breech presentation. The patient's GBS was collected on 03/16/2022 and is currently pending.? heart tones are currently in the mid 140s with moderate variability good accelerations.? The patient was sanjiv every 2 to 4 minutes but she was not feeling most of them. Because of the spontaneous rupture membranes and breech presentation, it was discussed with the patient that delivery was needed and that a section would be the safest mode of delivery for the infant. The patient verbalized understanding and consented to delivery. Procedure: After informed consent was obtained, the patient was taken to the operating room and the patient was prepped and draped in a normal sterile fashion in the dorsal supine position.? A spinal was placed and adequate anesthesia was obtained.? At 1938 on 03/18/2022 a Pfannenstiel skin incision was made and carried through to the underlying layer of fascia using a scalpel.? The fascial incision was then extended laterally using curved Mayos.? The fascia was then grasped with David clamps and the underlying rectus muscles were dissected off taking care to avoid injury to the underlying tissues.? The peritoneum was entered bluntly with one digit.? It was then bluntly.? The bladder blade was placed and the vesicouterine peritoneum was well below the lower uterine segment of the uterus.? The uterine incision was made in the lower uterine segment in a transverse f ashion with the scalpel at 194.? The amniotic membrane was entered bluntly and a very large amount of clear fluid was noted.? The infant was noted to be in the saray breech position. The buttocks was delivered first as the knees would not flex. The entire buttocks and torso had to be delivered in order to deliver the legs as they continue to be completely stiff. Next the right arm was swept me dially and anteriorly over the infant's chest and the right arm was delivered. Next the left arm was delivered in the same manner. The 's head was then delivered with the Smellie-Veit maneuver.? There was no nuchal cord.? The mouth and nose were suctioned.? The cord was clamped and cut. The had tone, however was apneic. She was handed to the awaiting pediatric nurses and Dr. Muhammad for further evaluation. The placenta was then manually expressed.? The uterus was exteriorized from the abdomen.? A wet lap was used to clear the uterus of clots and debris.? The bladder blade was reinserted and the uterine incision was closed using 0 chromic in a running locking fashion.? The uterus was noted to be firm.? A second layer of the same suture was used in the same manner.? A third layer was placed in a similar manner for obtaining hemostasis. Excellent hemostasis was obtained. Next the posterior cul-de-sac was inspected and was cleared of any blood. The gutters were cleared of any further clots and debris and the uterine incision was again inspected and hemostasis was noted.? The subfascial tissue was inspected for hemostasis and the peritoneum was re-approximated using 2-0 plain in a running fashion.? The fascia was then re-approximated using 0 Vicryl in a running fashion.? The subcutaneous tissue was inspected for hemostasis.? Aren's fascia was then re-approximated using 3-0 plain in a running fashion.? Good hemostasis was noted.? The subcutaneous tissue was then re-approximated using a subcuticular stitch.? The patient tolerated the procedure well and was recovered in stable condition.? Estimated blood loss was 500 mL. Urine in the Bangura catheter was clear. The patient was taken to recovery in good condition.
[2022-03-18] MEDS: diphenhydrAMINE 50 mg/mL SDV 1mL 25 MG IVP (21:56)
[2022-03-18] MEDS: ketorolac 30 mg/mL INJ IVP (23:01)
[2022-03-19] VITALS (27 sets, daily range): BP systolic 108–147; BP diastolic 55–86; PULSE 56–83; RESP 16–18; TEMP 35.6–36.2
[2022-03-19] MEDS: dextrose 5%-lactated ringers 1,000 ML 125 ML IV (00:08)
[2022-03-19] MEDS: oxyCODONE-APAP 5-325 mg Tablet PO ×5 (00:09→23:00)
[2022-03-19] MEDS: ketorolac 30 mg/mL INJ IVP ×2 (06:14→11:01)
[2022-03-19] MEDS: prenatal vitamin Capsule 1 CAP PO (11:01)
[2022-03-19] MEDS: ferrous sulfate EC 325 mg Tablet PO ×2 (11:02→17:49)
[2022-03-19] MEDS: docusate sodium 100 mg Capsule PO ×2 (11:02→17:49)
[2022-03-19 11:04] LABS: Hematocrit 25.9 % (37.0-47.0); Hemoglobin 8.6 g/dL (11.5-15.3); Mean Corpuscular HGB Conc 33.2 g/dL (30.0-36.0); Mean Corpuscular Hemoglobin 32.8 pg (28.0-34.0); Mean Corpuscular Volume 98.9 fl (81-99); Mean Platelet Volume 10.6 fL (7.4-10.4); Platelet Count 209 10^3/cmm (130-400); Red Blood Count 2.62 10^6/uL (4.1-5.3); Red Cell Distribution Width 13.1 % (12.1-15.1)
--- NOTE | 2022-03-19 12:30 | PC.NURSE ---
This IBCLC met with patient to discuss pumping, hand expression, milk storage and pumping schedule. Patient stated that pumping was comfortable but she wasnt getting much, education provided on normal colostrum amounts. Discussed flange size and how to select appropriate size. Educated on massaging breast tissue for 2-3 minutes prior to pumping, pump every 2-3 hours, pump for 10-15 minutes each pumping session. Recommended that patient hand express each breast for 2-3 minutes after each pumping session. Demonstration was provided on how to hand express, patient was able to return demonstrate. Patient was instructed to notify nurse when she had collected breastmilk and she will be provided syringes to store breastmilk in. Educated that breastmilk will be labeled, dated and timed and placed in the refrigerator so that she can take that milk for after discharge.
--- NOTE | 2022-03-19 13:43 | PM.PN ---
Subjective Subjective: The patient is doing well at this time. She is ambulating, voiding, passing gas and tolerating food by mouth. Her bleeding is decreasing well. Her pain is currently well controlled. Overall she has no concerns. Vitals/I&O/Wt Last Vital Signs Temp 96.1 F L 03/19/22 12:07 Pulse 66 03/19/22 12:07 Resp 17 03/19/22 11:02 BP 136/82 03/19/22 12:07 Pulse Ox 99 03/18/22 21:28 O2 Del Method 03/18/22 21:28 03/18/22 03/19/22 03/19/22 22:59 06:59 14:59 Intake Total 1000 / 1000 Output Total 700 / 700 1200 / 1900 Balance -700 / -700 -1200 / -1900 1000 / 1000 Weight last 48 hrs Weight 178 lb Physical Exam Narrative: General: Alert and oriented x3 Cardiac: Regular rate and rhythm without murmurs Lungs: Clear to auscultation bilaterally without wheezes, crackles or rhonchi Abdomen: Soft, mild to moderate tenderness over uterus. The uterus is firm and 2 cm below the umbilicus. Incision is clean and dry with bandage over the top currently. Extremities: +1 pitting edema in the bilateral lower extremities Urinary Catheter Management: Bangura Latex Free: Cath Placed During This Visit: yes, but has since been removed by the nurse Reason for Continuing Indwelling Catheter: Decision to DC Catheter Urinary Catheter Date of Insertion: 03/18/22 Urinary Catheter Time of Insertion: 19:30 Date Urinary Catheter Removed: 03/19/22 Time Urinary Catheter Discontinued: 09:45 Data : 03/19/22 10:45 A&P Assessment and plan (1) Status post section: Plan The patient is currently doing well. We will plan to remove bandage at 24 hours. The patient is to continue with routine post care. If she is doing well tomorrow we may be able to discharge home at that time. Routine discharge instructions were discussed today. Post care was discussed in detail. The patient will take iron due to a low hemoglobin. All questions answered proceed with care as above. Attestations Medical Necessity Statement*: The patient will be here for greater than 2 midnights due to routine intrapartum and management of labor and delivery. Coding Level of Care Code Acute Permastone Applicator for Chg Fwd Diagnoses Status post section Z98.891
[2022-03-19] MEDS: lanolin oint 7 gm 1 APPLIC TOPICAL (20:27)
[2022-03-20 01:03] VITALS: BP 127/69; PULSE 62; TEMP 36.8
[2022-03-20 03:16] VITALS: RESP 16
[2022-03-20] MEDS: oxyCODONE-APAP 5-325 mg Tablet PO ×2 (03:16→09:14)
[2022-03-20 03:25] VITALS: BP 132/77; PULSE 76; TEMP 36.6
--- NOTE | 2022-03-20 08:31 | P.DS_ITS ---
Discharge Providers Date of Admission: 03/18/22 17:26 Date of Discharge: March 20, 2022 Attending Provider at Admission: Immanuel Stoddard MD Attending Provider at Discharge: Immanuel Stoddard MD Primary Care Provider: Brayden Lemos DO Diagnoses at Discharge Discharge Diagnosis (1) Status post section: Details from hospital stay: 1.? Intrauterine status post primary low transverse section at 36.3 weeks gestation 2.? Spontaneous rupture of membranes at 1 AM on 03/18/2022 3.? Breech presentation 4.? Polyhydramnios 5.? IUGR 6.? Smoker 7.? Marijuana use 8.? Anemia 9. Delivery of infant female weighing 4 pounds 6 ounces with APGARS of 1, 6 and 7. Status: Acute Reason for Visit Reason for Visit: loss of fluid Brief History: Damari Hargrove is a 22 year old G1 NOW P1 status post primary low-transverse section @ 36.3 weeks by LMP c/w 10 wk US. Preg c/b smoker, THC use, anemia, new findings of SGA and polyhydramnios, breech presentation, presenting with SROM. The patient noted that at approximately 1 AM on 03/18/2022 she began to have leakage of fluid that was clear and watery mixed with mucus.? It was small amounts, however persisted.? She had an ultrasound done earlier today and the fluid leaking persisted, so she presented to labor and delivery triage for evaluation.? In L&D, she was noted to have a positive actim prom test and was noted to be breech presentation. The patient's GBS was collected on 03/16/2022 and is currently pending.? heart tones are currently in the mid 140s with moderate variability good accelerations.? The patient was sanjiv every 2 to 4 minutes but she was not feeling most of them. Because of the spontaneous rupture membranes and breech presentation, it was discussed with the patient that delivery was needed and that a section would be the safest mode of delivery for the .? The patient verbalized understanding and consented to delivery. Hospital Course Hospital Course The patient had a routine primary low-transverse section. She did not have any complications with this. The patient has done well and her bleeding is decreasing well. She is ambulating, voiding, passing gas and tolerating food by mouth. Her pain is currently well controlled by medications. Her did need to be transferred to the NICU and she request discharge home this morning to be able to be closer to her. The patient is stable at this time and I believe that she will do well being discharged home today. Routine discharge instructions were discussed and all questions were answered. Precautions for lifting and infection were discussed in detail. She is to let me know if she has any concerns. Physical Exam Narrative: General: Alert and oriented x3 Cardiac: Regular rate and rhythm without murmurs Lungs: Clear to auscultation bilaterally without wheezes, crackles or rhonchi Abdomen: Soft, mild to moderate tenderness over uterus. The uterus is firm and 2 cm below the umbilicus. Incision is clean and dry without signs of infection or dehiscence. Extremities: +1 pitting edema in the bilateral lower extremities Urinary Catheter Management: Bangura Latex Free: Cath Placed During This Visit: yes, but has since been removed by the nurse Reason for Continuing Indwelling Catheter: Decision to DC Catheter Urinary Catheter Date of Insertion: 03/18/22 Urinary Catheter Time of Insertion: 19:30 Date Urinary Catheter Removed: 03/19/22 Time Urinary Catheter Discontinued: 09:45 Discharge Data Studies Completed and Pending Pending at discharge Category Date Time Status CMV IGG&IGM Panel Routine Lab 03/19/22 14:10 Received Pathology: Surgical [PTH] Routine Pth 03/19/22 04:26 Received Laboratory Results WBC 12.0 10^3/uL (4.0-10.0) H 03/19/22 10:45 RBC 2.62 10^6/uL (4.1-5.3) L 03/19/22 10:45 Hgb 8.6 g/dL (11.5-15.3) L 03/19/22 10:45 Hct 25.9 % (37.0-47.0) L 03/19/22 10:45 MCV 98.9 fl (81-99) 03/19/22 10:45 MCH 32.8 pg (28.0-34.0) 03/19/22 10:45 MCHC 33.2 g/dL (30.0-36.0) 03/19/22 10:45 RDW 13.1 % (12.1-15.1) 03/19/22 10:45 Plt Count 209 10^3/cmm (130-400) 03/19/22 10:45 MPV 10.6 fL (7.4-10.4) H 03/19/22 10:45 Neut % (Auto) 66.3 % 03/18/22 17:40 Lymph % (Auto) 26.1 % 03/18/22 17:40 [place] % (Auto) 6.1 % 03/18/22 17:40 Eos % (Auto) 0.6 % 03/18/22 17:40 Baso % (Auto) 0.3 % 03/18/22 17:40 Neut # (Auto) 9.41 10^3/uL (1.8-7.7) H 03/18/22 17:40 Lymph # (Auto) 3.7 10^3/uL (0.8-4.8) 03/18/22 17:40 [place] # (Auto) 0.9 10^3/uL (0.2-0.9) 03/18/22 17:40 Eos # (Auto) 0.1 10^3/uL (0.0-0.8) 03/18/22 17:40 Baso # (Auto) 0.0 10^3/uL (0.0-0.1) 03/18/22 17:40 Nucleated RBC % (auto) 0 % 03/18/22 17:40 Nucleated RBCs # 0.0 /100WBC 03/18/22 17:40 Insulin-like GF I Positive 03/18/22 16:45 Urine Opiates Screen Negative ng/mL (Negative) 03/18/22 17:40 Ur Barbiturates Screen Negative ng/mL (Negative) 03/18/22 17:40 Ur Phencyclidine Scrn Negative ng/mL (Negative) 03/18/22 17:40 Ur Amphetamines Screen Negative ng/mL (Negative) 03/18/22 17:40 U Benzodiazepines Scrn Negative ng/mL (Negative) 03/18/22 17:40 Urine Cocaine Screen Negative ng/mL (Negative) 03/18/22 17:40 U Marijuana (THC) Screen Positive ng/mL (Negative) H 03/18/22 17:40 Vitals Last Vital Signs Temp 97.9 F 03/20/22 03:25 Pulse 76 03/20/22 03:25 Resp 16 03/20/22 03:16 BP 132/77 03/20/22 03:25 Pulse Ox 99 03/18/22 21:28 O2 Del Method 03/18/22 21:28 Discharge Plan Discharge Patient Disposition: Home Condition: Good Prescriptions: New oxycodone-acetaminophen 5-325 mg Tablet 1 tab PO Q6H PRN (Reason: Moderate To Severe Pain) Qty: 30 0RF ferrous sulfate 325 mg (65 mg iron) Tablet,Delayed Release (Dr/Ec) 325 mg PO BIDWM Qty: 30 0RF ibuprofen 800 mg Tablet 800 mg PO TID Qty: 60 0RF Continued Vitamin 27 mg iron- 800 mcg tablet 1 tab PO DAILY potassium chloride [Klor-Con 10] 10 mEq tablet extended release 10 meq PO DAILY Qty: 30 6RF magnesium oxide 400 mg magnesium tablet 400 mg PO DAILY Qty: 30 3RF Discontinued polysaccharide iron complex [Ferrex 150] 150 mg iron capsule 150 mg PO BID Qty: 60 6RF Discharge Orders: Discharge Order (Routine); Ordered 03/20/22 Ordered By: Immanuel Stoddard Referrals: Immanuel Stoddard MD [Physician] - 1 week (Follow up with Dr Stoddard in 1-2 weeks. ) Discharge Diet: Regular Discharge Activity: Limit activity as instructed Patient Instructions: Opioid Safety Activity Restrictions/Additional Instructions: Do not lift anything heavier than your in the car seat for the first 3 weeks, then gradually increase. If you have any concern for infection in your incision site, please seek immediate medical attention. Discharge Attestations Time Spent in Discharge Care*: greater than 30 min Quality Metrics Clinical Quality Measures [ No reported AMI, CVA or VTE this stay] Coding Level of Care Code Acute Chg FW DC note Diagnoses Status post section Z98.891
[2022-03-20] MEDS: ferrous sulfate EC 325 mg Tablet PO (09:13)
[2022-03-20] MEDS: ibuprofen 800 mg tablet PO (09:13)
[2022-03-20 09:14] VITALS: RESP 17
[2022-03-20] MEDS: prenatal vitamin Capsule 1 CAP PO (09:14)
[2022-03-20] MEDS: docusate sodium 100 mg Capsule PO (09:14)
[2022-03-20 09:24] VITALS: BP 126/73; PULSE 77; TEMP 36.1
[2022-03-20 10:01] VITALS: BP 126/73; PULSE 77; RESP 17; TEMP 36.1
[2022-03-22 15:18] LABS: Cytomegalovirus Antibody (IGM) <30.00 AU/mL
== END 2022-03-20 09:30 | disposition home or self-care (01) | DRG 787 ==
LOC: OPOB 17:26 → OBGYN 03-19 08:53
PROVIDERS: Admitting Provider Family Medicine; PCP Family Medicine; Visit Provider Family Medicine
PROC: 10D00Z1 Extraction of Products of Conception, Low, Open Approach (ICD-10-PCS; CPT 59514; principal; 2022-03-18 19:15)
DX: O32.1XX0 Maternal care for breech presentation, not applicable or unspecified (principal); O99.324 Drug use complicating childbirth; O99.334 Smoking (tobacco) complicating childbirth; F12.90 Cannabis use, unspecified, uncomplicated; O99.02 Anemia complicating childbirth; D64.9 Anemia, unspecified; O36.5930 Maternal care for other known or suspected poor fetal growth, third trimester, not applicable or unspecified; O40.3XX0 Polyhydramnios, third trimester, not applicable or unspecified; Z3A.36 36 weeks gestation of pregnancy; Z37.0 Single live birth; Z88.5 Allergy status to narcotic agent
CPT/HCPCS: 51702; 59025; 80306; 84112; 85025; 85027; 88307; 96374; 96376; 98960; 99211; J1200; J1885; J2274; J2405; J2765; J3010; J3490; J7030

== ENCOUNTER → 2023-08-07 15:16 | Outpatient (BNVA) | payer BC, MEDICAID, SELFPAY | PROVIDERS: PCP Family Medicine; Visit Provider Registered Nurse Neonatal Intensive Care | DX: R05.9 Cough, unspecified (principal) | CPT/HCPCS: 87400 ==

== ENCOUNTER → 2024-07-10 08:36 | Outpatient (BNVA) | payer BC, MEDICAID, SELFPAY | PROVIDERS: PCP Family Medicine; Visit Provider Emergency Medicine | DX: B34.9 Viral infection, unspecified (principal); J10.1 Influenza due to other identified influenza virus with other respiratory manifestations | CPT/HCPCS: 87400 ==

== ENCOUNTER → 2024-07-12 10:12 | Outpatient (BNVA) | payer BC, MEDICAID, SELFPAY | PROVIDERS: PCP Family Medicine; Visit Provider Emergency Medicine | DX: B34.9 Viral infection, unspecified (principal) | CPT/HCPCS: 87400 ==

== ENCOUNTER → 2025-05-06 13:54 | Outpatient (BNVA) | payer BC, MEDICAID, SELFPAY | PROVIDERS: PCP Family Medicine; Visit Provider Emergency Medicine | DX: S46.911A Strain of unspecified muscle, fascia and tendon at shoulder and upper arm level, right arm, initial encounter (principal); X58.XXXA Exposure to other specified factors, initial encounter; M25.511 Pain in right shoulder | CPT/HCPCS: 73030 ==

== ENCOUNTER 2025-05-20 10:31 | Emergency (ER) | payer BC, MEDICAID, SELFPAY ==
[2025-05-20 10:52] VITALS: BP 134/97; PULSE 91; RESP 18; TEMP 36.9; O2SAT 99
--- NOTE | 2025-05-20 11:04 | ED_ITS ---
HPI - Extremity Problem 2 General: Chief complaint: Extremity Injury, Upper Stated complaint: R shoulder pain x 1month Time Seen by Provider: 05/20/25 11:04 Source: patient Mode of arrival: ambulatory Limitations: no limitations History of Present Illness: Patient is a 25-year-old female presents to ED today with complaint of right shoulder pain. Patient states her shoulder has been bothering her for a month now. She was seen at the walk-in clinic 2 weeks ago and had negative x-rays performed. She was placed on hydrocodone, ibuprofen, muscle relaxers. She does feel like when she takes the ibuprofen and hydrocodone together that it helps with her pain but she does not like the side effects of the hydrocodone. She states her pain is significantly worse when she attempts to lift her 3-year-old. Patient states her 3-year-old is disabled and requires quite a bit of care so her pain in her shoulder is significantly affecting her life. She has not seen primary care for her complaint. MD Complaint: joint pain Onset (ago): month(s) Pain Consistency: constant Location: right and upper extremity Radiation: none Relieving factors: immobilization Exacerbating factors: range of motion and other (lifting ) Associated symptoms: Reports no associated symptoms; Deny chest pain Related Data Previous Rx's ?Medication ?Instructions ?Recorded albuterol sulfate 90 mcg/actuation 2 puff inhalation Q 6H PRN 07/10/24 aerosol inhaler shortness of breath or wheez ing #8.5 grams hydrocodone 5 mg-acetaminophen 325 1 tab PO Q6H PRN pa in 5 days #20 05/06/25 mg tablet tabs ibuprofen 800 mg tablet 800 mg PO Q8H PRN pain #20 t abs 05/20/25 methocarbamol 500 mg tablet 1,000 mg (2 x 500 mg) PO Q 8H #30 05/20/25 tabs prednisone 10 mg tablet 10 mg PO DAILY 7 days #27 ta bs 05/20/25 Allergies Allergy/AdvReac Type Severity Reaction Status Date / Time Opioids - Morphine Analogues Allergy ALGY-Anaphy Verified 05/06/25 13:36 laxis Review of Systems 2 Card: Denies: chest pain Resp: Denies: dyspnea GI: Denies: abdominal pain, nausea or vomiting : Denies: flank pain, dysuria or hematuria Musc: Reports: joint pain (R shoulder); Denies: neck pain, back pain, extremity pain, extremity swelling, joint swelling, joint redness, joint warmth or joint stiffness Neuro: Denies: numbness in extremities or sensory changes PFSH ED 2 PFSH: Medical History No significant past medical history Surgical History Status post section History of ear, nose, and throat (ENT) surgery Family History Denies family history of Colon cancer Ovarian cancer Diabetes Heart disease Hypercholesteremia Breast cancer Hypertension Uterine cancer Thyroid disease Stroke Social History Smoking and tobacco/nicotine status: current every day tobacco/nicotine user Substance/Drug Use: current Substance/Drug use frequency: daily Physical Exam 2 Const: COMMON NORMALS: no acute distress, no limitations, alert and well nourished GENERAL APPEARANCE: cooperative Chest: COMMONS NORMALS: normal inspection of the chest and normal palpation of entire chest wall Resp: COMMON NORMALS: normal respiratory effort and clear to auscultation bilaterally AUSCULTATION: clear to auscultation bilaterally Cardio: COMMON NORMALS: regular rate and regular rhythm RATE: regular rate RHYTHM: regular rhythm GI: COMMON NORMALS: Normal to inspection, nondistended, normoactive bowel sounds present, Soft to palpation and non-tender PALPATION: Yes Soft to palpation : COMMON NORMALS: Yes no CVA tenderness BLADDER/KIDNEY EXAM: Yes no CVA tenderness Back/Pelvis: COMMON NORMALS: no CVA tenderness, thoracic and lumbar spine normal to inspection, no thoracic nor lumbar tenderness and thoraco-lumbar ROM normal Extremity: GENERAL: Yes normal exam except as noted RIGHT UPPER EXTREMITY: Yes shoulder joint (TTP medial edge of R scapula-worse with ROM) Right shoulder: Yes Right shoulder joint inspection exam (normal gross inspection) and Yes Right shoulder joint neurovascular exam (normal) EXTREMITY IMAGE (BACK): 1. TTP Neuro: COMMON NORMALS: moves all extremities, no focal motor deficits and no sensory deficits noted SENSORIUM/ORIENTATION: Yes alert Course 2 Vital Signs: Vital signs: Vital Signs Temperature 98.5 F 05/20/25 10:52 Pulse Rate 91 05/20/25 10:52 Respiratory Rate 18 05/20/25 10:52 Blood Pressure 134/97 05/20/25 10:52 Pulse Oximetry 99 05/20/25 10:52 Oxygen Delivery Me thod Room Air 05/20/25 10:52 MDM - Extremity (Nontraumatic) Medical Decision Making XR from 2 weeks ago reviewed. 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 Spoke to her about PCP follow-up and possibility of MRI as an outpatient or physical therapy versus continued conservative therapy. She is agreeable to this. Medical Records I reviewed the patient's medical records. No radiology studies performed this visit Discharge Plan Discharge Patient Disposition: Home Clinical Impression: Acute pain of right shoulder Condition: Stable Prescriptions: New methocarbamol 500 mg tablet 1,000 mg PO Q8H Qty: 30 0RF prednisone 10 mg tablet 10 mg PO DAILY 7 Days Qty: 27 0RF Rx Instructions: 6 tabs on days 1-2, 5 tabs on days 3, 4 tabs on day 4, 3 tabs on day 5, 2 tabs on day 6, 1 tab on day 7 ibuprofen 800 mg tablet 800 mg PO Q8H PRN (Reason: pain) Qty: 20 0RF Discontinued methocarbamol 750 mg tablet 750 mg PO Q8H PRN (Reason: pain) Qty: 30 0RF No Action albuterol sulfate 90 mcg/actuation HFA aerosol inhaler 2 puff inhalation Q6H PRN (Reason: shortness of breath or wheezing) Qty: 8.5 0RF hydrocodone-acetaminophen 5-325 mg tablet 1 tab PO Q6H PRN (Reason: pain) 5 Days Qty: 20 0RF Discharge Orders: Discharge ED (Routine); Ordered 05/20/25 Ordered By: Lauren Zee Referrals: Brayden Lemos DO [Primary Care Provider, Family Practice] Patient Instructions: Patient Portal & Stanley Instructions Activity Restrictions/Additional Instructions: As we discussed, plan will be for you to follow-up with primary care. From there they can determine whether he might need physical therapy or further imaging for treatment of your shoulder pain. Print Language: Mauritanian Coding Level of Care Code ED Fulfillment Coordinator for Anca Campos
[2025-05-20 11:49] VITALS: BP 129/87; PULSE 70; RESP 16; O2SAT 99
== END 2025-05-20 11:51 | disposition home or self-care (01) ==
PROVIDERS: Emergency Provider Physician Assistant; PCP Family Medicine
DX: M25.511 Pain in right shoulder (principal); Z72.0 Tobacco use
CPT/HCPCS: 99283